=== PATIENT | female | born 1965 | race African-American/Black ===

== ENCOUNTER → 2016-02-12 | Outpatient (CLI) | payer OTHER ==
[~2016-02-12] MED LIST: AMLO5TAB2 PO; CHOL1TAB27 PO; CYCL1TAB29 PO; EFLO13.9 TOPICAL; HYDR25TA5 PO; MAGN400T2 PO; NORT1TAB PO; OMEP20TA PO; SENN8.8S7 PO
[2016-02-12 16:25] LABS: FOLLICLE STIMULATING HORMONE 3.1 mIU/mL; LUTEINIZING HORMONE 2.4 mIU/mL
[2016-02-12 18:04] LABS: CHLAMYDIA PCR NOT DETECTED (NOT DETECT); NEISSERIA PCR NOT DETECTED (NOT DETECT)
== END ==
LOC: CLAB 15:16
PROVIDERS: ATTEND Family Medicine
DX: Z11.3 Encounter for screening for infections with a predominantly sexual mode of transmission (principal)
CPT/HCPCS: 36415; 83001; 83002; 86592; 86703; 87491; 87591

== ENCOUNTER → 2016-08-24 | Outpatient (CLI) | payer OTHER ==
[~2016-08-24] MED LIST changes: -EFLO13.9 TOPICAL; -MAGN400T2 PO
== END ==
LOC: CLAB 09:02
PROVIDERS: ATTEND Family Medicine
DX: Z11.9 Encounter for screening for infectious and parasitic diseases, unspecified (principal)
CPT/HCPCS: 36415